=== PATIENT | male | born 1935 | race Caucasian/White ===

== ENCOUNTER → 2016-05-12 | Outpatient (CLI) | payer MEDICARE | END | disposition home or self-care (01) | LOC: PCVCIMAG 08:02 | PROVIDERS: ATTEND Internal Medicine Cardiovascular Disease | DX: I71.4 Abdominal aortic aneurysm, without rupture (principal); I25.10 Atherosclerotic heart disease of native coronary artery without angina pectoris; E78.00 Pure hypercholesterolemia, unspecified; I73.9 Peripheral vascular disease, unspecified; I77.9 Disorder of arteries and arterioles, unspecified; I10 Essential (primary) hypertension | CPT/HCPCS: 80061; 93005; 93978; G0463 ==

== ENCOUNTER → 2017-02-22 | Outpatient (CLI) | payer MEDICARE | END | disposition home or self-care (01) | LOC: PCVCCLINIC 13:27 | PROVIDERS: ATTEND Internal Medicine Cardiovascular Disease | DX: I65.23 Occlusion and stenosis of bilateral carotid arteries (principal); I25.10 Atherosclerotic heart disease of native coronary artery without angina pectoris; I71.4 Abdominal aortic aneurysm, without rupture; I73.9 Peripheral vascular disease, unspecified; I10 Essential (primary) hypertension; I77.9 Disorder of arteries and arterioles, unspecified; Z79.82 Long term (current) use of aspirin; Z79.899 Other long term (current) drug therapy; Z95.828 Presence of other vascular implants and grafts | CPT/HCPCS: 93005; 93880; G0463 ==

== ENCOUNTER → 2017-06-07 | Outpatient (CLI) | payer MEDICARE | END | disposition home or self-care (01) | LOC: PCVCIMAG 09:18 | DX: I71.4 Abdominal aortic aneurysm, without rupture (principal); I73.9 Peripheral vascular disease, unspecified; I25.10 Atherosclerotic heart disease of native coronary artery without angina pectoris; I10 Essential (primary) hypertension; E78.00 Pure hypercholesterolemia, unspecified; I77.9 Disorder of arteries and arterioles, unspecified; Z87.891 Personal history of nicotine dependence; Z79.82 Long term (current) use of aspirin; Z79.899 Other long term (current) drug therapy; R94.31 Abnormal electrocardiogram [ECG] [EKG] | CPT/HCPCS: 93005; 93978; G0463 ==

== ENCOUNTER → 2018-01-10 | Outpatient (CLI) | payer MEDICARE | END | disposition home or self-care (01) | LOC: PCVCCLINIC 15:00 | PROVIDERS: ATTEND Internal Medicine Cardiovascular Disease | DX: I25.10 Atherosclerotic heart disease of native coronary artery without angina pectoris (principal); I10 Essential (primary) hypertension; I65.23 Occlusion and stenosis of bilateral carotid arteries; I71.4 Abdominal aortic aneurysm, without rupture; I73.9 Peripheral vascular disease, unspecified; E78.00 Pure hypercholesterolemia, unspecified; Z87.891 Personal history of nicotine dependence; Z79.82 Long term (current) use of aspirin | CPT/HCPCS: 93005; G0463 ==

== ENCOUNTER → 2018-02-23 | Outpatient (CLI) | payer MEDICARE ==
--- NOTE | 2018-02-23 12:52 | PCVCIMAG ---
APPROVED REPORT Indications Stenosis Doppler Spectral Velocity Analysis PSV / EDVPSV / EDV ECA (R) 261 / 15 cm/sECA (L) 215 / 13 cm/s dICA (R) 49 / 14 cm/sdICA (L) 74 / 15 cm/s Krissy (R) 77 / 20 cm/smICA (L) 131 / 25 cm/s pICA (R) 87 / 21 cm/spICA (L) 122 / 25 cm/s Bulb (R) 65 / 14 cm/sBulb (L) 98 / 12 cm/s dCCA (R) 70 / 11 cm/sdCCA (L) 93 / 14 cm/s mCCA (R) 69 / 14 cm/smCCA (L) 69 / 11 cm/s Vert (R) 48 / 9 cm/sVert (L) 58 / 14 cm/s ICA/CCA 1.24ICA/CCA 1.41 Findings The right carotid bulb has mild plaque. The right proximal internal carotid artery shows no significant stenosis, widely patent stent. The right common carotid artery shows no significant stenosis. The right external carotid artery shows >50% stenosis. The left carotid bulb has moderate calcified plaque. The left proximal internal carotid artery shows 40-50% stenosis. The left common carotid artery shows no significant stenosis. The left external carotid artery shows >50% stenosis. Conclusion 1. Widely patent right common and internal carotid artey stent 2. Left internal carotid artery stenosis (40-50%) 3. Antegrade vertebral flow
--- NOTE | 2018-02-23 13:51 | PCVCIMAG ---
EXAM: AORTOILIAC DUPLEX INDICATION: Peripheral arterial disease. Abdominal aortic aneurysm. FINDINGS: AORTA: Suprarenal aorta measures maximum diameter of 3.5 cm. There is a fusiform infrarenal aortic aneurysm. The infrarenal aorta measures maximum diameter of 3.1 x 3.8 cm. No aortic stenosis. RIGHT COMMON ILIAC ARTERY: Maximum diameter is 1.6 cm. No significant stenosis. RIGHT EXTERNAL ILIAC ARTERY: No significant stenosis. LEFT COMMON ILIAC ARTERY: Maximum diameter is 1.4 cm. No significant stenosis. LEFT EXTERNAL ILIAC ARTERY: Mild stenosis proximally. IMPRESSION: 3.8 cm infrarenal abdominal aortic aneurysm. Mild stenosis proximal left external iliac artery. LOC:[id number]
--- NOTE | 2018-02-23 14:05 | PCVCIMAG ---
EXAM: BILATERAL LOWER EXTREMITY ARTERIAL DUPLEX INDICATION: Peripheral Arterial Disease. Leg pain. FINDINGS: Right Leg: Satisfactory arterial waveforms throughout the common/profunda/superficial femoral, popliteal, anterior tibial, peroneal, and posterior tibial arteries. No flow limiting stenosis seen. Left Leg: Satisfactory arterial waveforms throughout the common/profunda/superficial femoral, popliteal, anterior tibial, peroneal, and posterior tibial arteries. No flow limiting stenosis seen. IMPRESSION: No flow limiting stenosis in the right lower extremity. No flow limiting stenosis in the left lower extremity. LOC:[id number]
== END | disposition home or self-care (01) ==
LOC: PCVCIMAG 09:20
PROVIDERS: ATTEND Internal Medicine Cardiovascular Disease
DX: I65.23 Occlusion and stenosis of bilateral carotid arteries (principal); I71.4 Abdominal aortic aneurysm, without rupture; I73.9 Peripheral vascular disease, unspecified; I77.9 Disorder of arteries and arterioles, unspecified
CPT/HCPCS: 93880; 93925; 93978

== ENCOUNTER → 2018-07-26 | Outpatient (CLI) | payer MEDICARE | END | disposition home or self-care (01) | LOC: PCVCCLINIC 13:00 | PROVIDERS: ATTEND Internal Medicine Cardiovascular Disease | DX: I25.10 Atherosclerotic heart disease of native coronary artery without angina pectoris (principal); R94.31 Abnormal electrocardiogram [ECG] [EKG]; I71.4 Abdominal aortic aneurysm, without rupture; I77.9 Disorder of arteries and arterioles, unspecified; I73.9 Peripheral vascular disease, unspecified; I10 Essential (primary) hypertension; R09.89 Other specified symptoms and signs involving the circulatory and respiratory systems; E78.00 Pure hypercholesterolemia, unspecified; Z87.891 Personal history of nicotine dependence; Z79.899 Other long term (current) drug therapy; Z79.82 Long term (current) use of aspirin | CPT/HCPCS: 36415; 80061; 93005; G0463 ==